=== PATIENT | male | born 1960 | race Caucasian/White ===

== ENCOUNTER 2024-03-26 12:51 | Day surgery (SDC) | payer OTHER, SELFPAY ==
--- NOTE | 2024-03-26 | PATH_ITS ---
[facility] Accession Number: [id number] No. of containers..01 Tissue . 01 Material submitted: . rectum - RECTAL POLYP . 01 Diagnosis: RECTAL POLYP: Hyperplastic polyp. [facility] 03/28/2024 1101 Local . 01 Electronically signed: . Ashu Mckeon MD, PhD, Pathologist NPI- [id number] . 01 Gross description: . Received in formalin with two patient identifiers and rectal polyp, are two blunt soft tissue fragments 0.3 to 0.4 cm in greatest dimension. Submitted in cassette A1. ([id number]) /NAVEEN 03/27/2024 0828 Local . 01 Pathologist provided ICD-10: K62.1 . 01 CPT . 633009 Specimen Comment: A courtesy copy of this report has been sent to [phone] Performed at: [address] [facility] [id number] MD Luis Wood MD Phone: [phone]
[2024-03-26 13:22] VITALS: BP 152/92; PULSE 79; RESP 16; TEMP 36.7; O2SAT 97
[2024-03-26] MEDS: LACTATED RINGERS 1,000 ML 42 ML IV (13:32)
--- NOTE | 2024-03-26 13:36 | P.HP_ITS ---
History of Present Illness History of Present Illness Date Patient Seen: 03/26/24 Time Patient Seen: 13:37 Chief complaint: Screening Colonoscopy Narrative: 63-year-old man here for screening colonoscopy. Occasional bright red blood per rectum. No family history of colon cancer PFSH Medical History History of anxiety Hx of chronic arthritis Hx of atrial fibrillation, no current medication HTN (hypertension) Hx of sleep apnea Hx of cardiac pacemaker Surgical History Hx of inguinal hernia surgery Hx of tonsillectomy Hx of hernia repair (~2022) History of permanent cardiac pacemaker placement Social History Smoking Status: Former smoker alcohol intake: current Meds Home Medications and Allergies Home Medications Medication Instructions Recorded Confirmed Type flecainide 100 mg tablet 100 mg PO Q12H 04/19/21 03/26/24 History Pacemaker 06/30/21 04/06/22 History diltiazem HCl 120 mg 240 mg PO DAILY 06/30/21 03/26/24 History capsule,extended release 24 hr (Cartia XT) aspirin 325 mg tablet 325 mg PO DAILY 03/26/24 03/26/24 History Allergies Allergy/AdvReac Type Severity Reaction Status Date / Time rivaroxaban [From Xarelto] Allergy Hives Verified 03/26/24 13:12 Exam Vital Signs (past 8 hours): - 03/26/24 13:22 Temperature 98.1 F Pulse Rate 79 Respiratory Rate 16 Blood Pressure 152/92 H Pulse Oximetry 97 Oxygen Delivery Method Room Air Oxygen Delivery Method Room Air Narrative Exam Narrative: General adult man alert oriented no acute distress Chest nonlabored respiration Extremities warm well perfused Assessment & Plan Assessment & Plan narrative: The patient requires colorectal screening and colonoscopy is recommended. Technical details were discussed. Risks, benefits, alternatives explained. Ris ks including but not limited to myocardial infarction, aspiration, bleeding, pain, missed lesion, incomplete examination, need for further radiographic studies, intestinal injury, and need for major abdominal surgery were discussed. All questions were answered to their satisfaction, and they are in agreement with this plan. Time-Based Coding :: [TOTAL MINUTES] spent with patient and on the chart (including review of chart, obtaining history, exam, reviewing outside data, placing orders, documenting exam and treatment plan, and counseling patient) on [DATE].
[2024-03-26 14:04] VITALS: BP 114/82; PULSE 79; RESP 14; TEMP 37; O2SAT 94
[2024-03-26 14:09] VITALS: BP 124/85; PULSE 67; RESP 17; O2SAT 94
[2024-03-26 14:11] VITALS: BP 113/82; PULSE 64; RESP 17; TEMP 36.7; O2SAT 94
--- NOTE | 2024-03-26 14:12 | P.OP.COLON_ITS ---
Operative Date/Time/Diagnoses Date of procedure: 03/26/24 Time of procedure: 14:13 Pre-op diagnosis: Colorectal screening Post-op diagnosis: other (Colonic polyp) Procedure & Clinicians Study performed: Screening colonoscopy and polypectomy Same procedure as scheduled: Yes Indications: Colorectal screening Procedure Notes Procedure in detail: The history and physical was performed/updated and the patient is ASA class is 2. The procedure was discussed in detail with the patient. Potential risks complications including infection, bleeding, missed diagnosis, perforation, need for surgery, and were explained. Their questions were answered and informed consent was obtained. Patient was brought to the procedure room and placed standard monitoring equipment. The patient's vital signs were monitored continuously throughout the entire procedure. Prior to starting time-out was performed. The patient was placed in the left lateral recumbent position. Procedural sedation was administered by anesthesia. Examination began with a thorough inspection of the perianal area there was no evidence of fissures, fistulae, external hemorrhoids or cutaneous malignancy. The colonoscopy scope was then placed into the anal canal and was advanced to the cecum, which was identified by the ileocecal valve, the appendiceal orifice and the confluence of the taenia. The scope was then slowly withdrawn examining colon thoroughly in all directions, irrigating it of any residual stool. The scope was retroflexed within the rectum The patient tolerated the procedure well. They will be discharged once criteria are met. The prep was of good/excellent quality. The withdrawl time was 7 minutes. FINDINGS * Rectum 3 mm polyp removed with biopsy forceps * Descending colon mild diverticulosis * Internal hemorrhoids Specimen(s): other (Rectal polyp) Impression: Colonic polyp x1 Post-procedure Recommendations: High fiber diet Plan for aftercare: Colonoscopy follow up dependent on pathology findings Disposition: same day surgery
== END 2024-03-26 14:29 | disposition home or self-care (01) ==
PROVIDERS: PCP Family Medicine; Referring Provider Surgery; Visit Provider Surgery
PROC: 0DJD8ZZ Inspection of Lower Intestinal Tract, Via Natural or Artificial Opening Endoscopic (ICD-10-PCS; CPT 45378; principal; 2024-03-26 13:45)
DX: Z12.11 Encounter for screening for malignant neoplasm of colon (principal); K64.8 Other hemorrhoids; K57.30 Diverticulosis of large intestine without perforation or abscess without bleeding
CPT/HCPCS: 45378; 45380; J2704

== ENCOUNTER 2024-07-25 17:19 | Emergency (ER) | payer OTHER, SELFPAY ==
[2024-07-25] VITALS (11 sets, daily range): BP systolic 124–173; BP diastolic 74–93; PULSE 59–70; RESP 15–21; TEMP 36.7; O2SAT 95–99; BMI 31.1
--- NOTE | 2024-07-25 17:28 | DI.RAD.S_ITS ---
PROCEDURE: XR CHEST 1V INDICATIONS: chest pain TECHNIQUE: One view of the chest was acquired. COMPARISON: [facility], CR, XR CHEST 2 VIEWS, 09/18/2023, 18:18. FINDINGS: Surgical changes and devices: left-sided cardiac pacer device is in place. Lungs and pleura: Lungs are clear. No pleural effusions or pneumothorax. Mediastinum: Mediastinal contours appear normal. Heart size is normal. Bones and chest wall: No suspicious bony lesions. Overlying soft tissues appear unremarkable. IMPRESSION: Stable radiographic evaluation of the chest without acute cardiopulmonary abnormalities or focal consolidation. Dictated by: Papi Fu M.D. on 07/25/2024 at 18:47 Approved by: Papi Fu M.D. on 07/25/2024 at 18:48
--- NOTE | 2024-07-25 17:33 | EKG_ITS ---
[facility] [address] [place] [address] Test Date: 2024-07-25 Pat Name: John [facility] Department: [facility] Room: Gender: Male [employer] Project Manager: NIYA : 1960 Requested By: Order Number: [id number] Reading MD: Ted Camacho MD Measurements Intervals [place] Rate: 62 P: 53 NM: 180 QRS: -54 QRSD: 110 T: 48 QT: 404 QTc: 410 Interpretive Statements Normal sinus rhythm Left anterior fascicular block NO PRIOR TRACING Electronically Signed On 07-26-2024 6:41:49 PST by Ted Camacho MD
[2024-07-25 17:52] LABS: Add Manual Diff / Slide Review NO; Basophils Absolute Auto 100 /uL (0-100); Basophils Percent Auto 0.9 % (0-2); Eosinophils Absolute Auto 100 /uL (0-450); Eosinophils Percent Auto 0.8 % (2-4); Hematocrit 44.8 % (41-53); Hemoglobin 15.2 g/dL (13.5-17.5); Lymphocytes Absolute Auto 2100 /uL (1100-4500); Lymphocytes Percent Auto 26.7 % (25-40); Mean Corpuscular Hemoglobin 32.4 PG (26-34); Mean Corpuscular Volume 95.4 fL (80-100); Monocytes Absolute Auto 800 /uL (0-900); Monocytes Percent Auto 9.9 % (3-14); Neutrophils Absolute Auto 4900 /uL (1500-7000); Neutrophils Percent Auto 61.7 % (50-75); Platelet Count 276 X10^3/uL (150-400); Red Cell Distribution Width 12.6 % (11.6-14.8); White Blood Cell Count 7.9 X10^3/uL (4.5-11.0)
[2024-07-25 17:58] LABS: INR 1.1 (0.9-1.3); Prothrombin Time 12.7 SECONDS (9.4-12.5)
[2024-07-25 18:00] LABS: PTT Partial Thromboplastin Tim 36 SECONDS (25.1-36.5)
--- NOTE | 2024-07-25 18:32 | ED_ITS ---
HPI - Chest Pain General Chief Complaint: Chest Pain Stated Complaint: HBP, burning sensation in chest and soreness Time Seen by Provider: 07/25/24 17:27 Source: patient and family Mode of arrival: Ambulatory Limitations: no limitations History of Present Illness HPI narrative: Patient is a 64-year-old male. He states that for the past several weeks or longer he was had occasional ?burning? sensation in the middle of his chest. He states that they are days when he does not have any symptoms and other days where he has a multiple times. No shortness of breath. No fevers. No vomiting. No abdominal pain. No change in bowel habits. He saw his primary care doctor yesterday. Saw them again today for blood pressure check. Was prescribed 10 mg of lisinopril. This is a new medication for him. He was yet to start this medicine. He was had an ablation in the past for AFib/flutter. He was on diltiazem and flecainide. Related Data Home Medications Medication Instructions Recorded Confirmed flecainide 100 mg tablet 100 mg PO Q12H 04/19/21 03/26/24 Pacemaker 06/30/21 04/06/22 diltiazem HCl 120 mg 240 mg PO DAILY 06/30/21 03/26/24 capsule,extended release 24 hr (Cartia XT) aspirin 325 mg tablet 325 mg PO DAILY 03/26/24 03/26/24 Allergies Allergy/AdvReac Type Severity Reaction Status Date / Time rivaroxaban [From Xarelto] Allergy Hives Verified 03/26/24 13:12 Review of Systems Review of Systems Narrative: See HPI Patient History Medical History History of anxiety Hx of chronic arthritis Hx of atrial fibrillation, no current medication HTN (hypertension) Hx of sleep apnea Hx of cardiac pacemaker Surgical History Hx of inguinal hernia surgery Hx of tonsillectomy Hx of hernia repair (~2022) History of permanent cardiac pacemaker placement Social History Smoking Status: Former smoker alcohol intake: current Smoking Status: Former smoker alcohol intake frequency: a few times a month Exam Initial Vital Signs Initial Vital Signs: Vital Signs Temperature 98.1 F 07/25/24 17:22 Pulse Rate 62 07/25/24 17:22 Respiratory Rate 18 07/25/24 17:22 Blood Pressure 173/90 H 07/25/24 17:22 Pulse Oximetry 99 07/25/24 17:22 Oxygen Delivery Method Room Air 07/25/24 17:22 Const General: cooperative, comfortable and No ill appearing HENMT Head: normal to inspection and normocephalic Resp Effort & Inspection: normal respiratory effort Auscultation: clear to auscultation bilaterally Cardio Rate: regular rate Rhythm: regular rhythm GI Inspection: normal to inspection Skin General: no rashes or lesions noted Neuro General: patient alert and patient awake Course Orders Ordered: ED Orders 07/25/24 17:28 XR chest 1V Stat EKG-12 Lead Stat 07/25/24 17:37 Complete Blood Count AUTO DIFF Stat PTT Partial Thromboplastin Eliel Stat Prothrombin Time INR Stat 07/25/24 18:25 Comprehensive Metabolic Panel Stat Lipase Stat Magnesium Stat NT-proBNP (BNP-Adult 18+) Stat Troponin & CK Cardiac Panel Stat Vital Signs Vital signs: Vital Signs - 8 hr 07/25/24 17:22 07/25/24 17:25 07/25/24 17:26 Temperature 98.1 F Pulse Rate 62 69 62 Respiratory Rate 18 16 15 Blood Pressure 173/90 H Pulse Oximetry 99 99 99 Oxygen Delivery Method Room Air 07/25/24 17:26 07/25/24 17:30 07/25/24 17:30 Temperature Pulse Rate 70 Respiratory Rate 21 Blood Pressure 173/90 H 168/84 H Pulse Oximetry 98 Oxygen Delivery Method Room Air 07/25/24 17:40 07/25/24 17:40 07/25/24 18:00 Temperature Pulse Rate 62 Respiratory Rate 16 Blood Pressure 168/93 H 134/74 Pulse Oximetry 99 Oxygen Delivery Method 07/25/24 18:00 07/25/24 18:03 07/25/24 18:03 Temperature Pulse Rate 60 62 Respiratory Rate 20 Blood Pressure 136/85 Pulse Oximetry 97 97 Oxygen Delivery Method 07/25/24 18:30 07/25/24 18:30 07/25/24 19:05 Temperature Pulse Rate 60 60 Respiratory Rate 20 Blood Pressure 142/90 H Pulse Oximetry 97 95 Oxygen Delivery Method Room Air 07/25/24 19:06 07/25/24 19:06 07/25/24 19:30 Temperature Pulse Rate 59 L Respiratory Rate 21 Blood Pressure 124/84 152/90 H Pulse Oximetry 97 Oxygen Delivery Method 07/25/24 19:30 Temperature Pulse Rate 60 Respiratory Rate 21 Blood Pressure Pulse Oximetry 97 Oxygen Delivery Method Room Air MDM - Chest Pain Lab Data Attestation: I reviewed the patient's lab results. 07/25/24 17:37 07/25/24 18:25 Labs: Lab Results 07/25/24 07/25/24 Range/Units 17:37 18:25 WBC 7.9 (4.5-11.0) X10^3/uL RBC 4.70 (4.5-5.9) X10^6/uL Hgb 15.2 (13.5-17.5) g/dL Hct 44.8 (41-53) % MCV 95.4 (80-100) fL MCH 32.4 (26-34) PG MCHC 34.0 (30-36) % RDW 12.6 (11.6-14.8) % Plt Count 276 (150-400) X10^3/uL Neut % (Auto) 61.7 (50-75) % Lymph % (Auto) 26.7 (25-40) % [place] % (Auto) 9.9 (3-14) % Eos % (Auto) 0.8 L (2-4) % Baso % (Auto) 0.9 (0-2) % Neut # (Auto) 4900 (1771-8177) /uL Lymph # (Auto) 2100 (0310-4216) /uL [place] # (Auto) 800 (0-900) /uL Eos # (Auto) 100 (0-450) /uL Baso # (Auto) 100 (0-100) /uL PT 12.7 H (9.4-12.5) SECONDS INR 1.1 (0.9-1.3) APTT 36 (25.1-36.5) SECONDS Sodium 138 (137-145) mmol/L Potassium 4.1 (3.4-5.1) mmol/L Chloride 105 (98-107) mmol/L Carbon Dioxide 25 (22-32) mmol/L BUN 16 (9-20) mg/dL Creatinine 0.84 (0.66-1.25) mg/dL Estimated GFR > 60 (>60) mL/min BUN/Creatinine Ratio 19.0 (6-22) Glucose 96 (80-110) mg/dL Calcium 8.9 (8.4-10.2) mg/dL Magnesium 1.9 (1.6-2.3) mg/dL Total Bilirubin 0.4 (0.2-1.3) mg/dL AST 31 (17-59) IU/L ALT 36 (<50) IU/L Alkaline Phosphatase 60 (38-126) U/L Total Creatine Kinase 130 (55-170) U/L Troponin I < 0.012 (0.01-0.034) ng/mL NT-Pro-B Natriuret Pep 22 (<125) pg/mL Total Protein 7.3 (6.3-8.2) g/dL Albumin 4.3 (3.5-5.0) g/dL Globulin 3.0 (1.7-4.1) g/dL Albumin/Globulin Ratio 1.4 (1.0-2.8) Lipase 67 (23-300) U/L Imaging Data Chest x-ray: Radiologist's Impression: PROCEDURE: XR CHEST 1V INDICATIONS: chest pain TECHNIQUE: One view of the chest was acquired. COMPARISON: [facility], , XR CHEST 2 VIEWS, 09/18/2023, 18:18. FINDINGS: Surgical changes and devices: left-sided cardiac pacer device is in place. Lungs and pleura: Lungs are clear. No pleural effusions or pneumothorax. Mediastinum: Mediastinal contours appear normal. Heart size is normal. Bones and chest wall: No suspicious bony lesions. Overlying soft tissues appear unremarkable. IMPRESSION: Stable radiographic evaluation of the chest without acute cardiopulmonary abnormalities or focal consolidation. ECG Data Attestation: I personally reviewed and interpreted this ECG as follows: Interpretation: Sinus rhythm Ventricular rate is 62 Normal axis Normal QRS Normal QTC ST T wave changes MDM Narrative Medical decision making narrative: Chest x-ray is negative. Troponin is negative. Sinus rhythm on the EKG without ischemic changes. Has had symptoms off and on for weeks now. Blood pressure has been somewhat labile here in the ER with systolic blood pressure from the 1 20s to 170s. I have low suspicion for ACS. I do recommend that he start taking the lisinopril and I discussed this with him. We discussed continuing to take his blood pressure at home and record the values that he can follow up with his primary doctor about potentially any medication changes. He was given return precautions. He expressed understanding and agreement. Discharge Plan Departure Patient Disposition: Home Clinical Impression: Atypical chest pain, Hypertension Instructions: DI for Atypical Chest Pain Activity Restrictions/Additional Instructions: Continue to take all of your medications as directed. I also recommend that you start taking your blood pressure at home on a daily basis and recording the results so that you can discuss with your primary doctor about potentially any changes to your medication. Return to the emergency department for new or worsening symptoms. Prescriptions: No Action aspirin 325 mg Tablet 325 mg PO DAILY (DME) Pacemaker 0 .Route .MEDSUPPLY Patient Comments: patient stated he has a Pacemaker flecainide 100 mg tablet 100 mg PO Q12H diltiazem HCl [Cartia XT] 120 mg capsule,extended release 24hr 240 mg PO DAILY Referrals: Ra Rodrigez DO [Primary Care Provider] - Stand Alone Forms: Patient Portal/API/Survey
[2024-07-25 18:59] LABS: Alanine Aminotransferase 36 IU/L (<50); Albumin 4.3 g/dL (3.5-5.0); Albumin Globulin Ratio 1.4 (1.0-2.8); Alkaline Phosphatase 60 U/L (38-126); Aspartate Aminotransferase 31 IU/L (17-59); Bilirubin Total 0.4 mg/dL (0.2-1.3); Blood Urea Nitrogen 16 mg/dL (9-20); Calcium 8.9 mg/dL (8.4-10.2); Carbon Dioxide 25 mmol/L (22-32); Chloride 105 mmol/L (98-107); Creatine Kinase 130 U/L (55-170); Estimated Glomerular Filt Rate > 60 mL/min (>60); Glucose 96 mg/dL (80-110); HEMOLYSIS < 15 (0-50); Lipase 67 U/L (23-300); Magnesium 1.9 mg/dL (1.6-2.3); Potassium 4.1 mmol/L (3.4-5.1); Sodium 138 mmol/L (137-145); Total Protein 7.3 g/dL (6.3-8.2)
[2024-07-25 19:11] LABS: NT-proBNP (BNP-Adult 18+) 22 pg/mL (<125); Troponin I < 0.012 ng/mL (0.01-0.034)
== END 2024-07-25 19:44 | disposition home or self-care (01) ==
PROVIDERS: Emergency Medicine; Emergency Provider Emergency Medicine; PCP Family Medicine
DX: R07.89 Other chest pain (principal); I10 Essential (primary) hypertension; I44.4 Left anterior fascicular block
CPT/HCPCS: 36415; 71045; 80053; 82550; 83690; 83735; 83880; 84484; 85025; 85610; 85730; 93005; 93010; 99283; 99284